=== PATIENT | male | born 1940 | race Caucasian/White ===

== ENCOUNTER 2020-07-15 13:21 | Emergency (ER) | payer OTHER ==
[2020-07-15 13:27] VITALS: BP 159/76; PULSE 79
== END 2020-07-15 16:21 | disposition home or self-care (01) ==
LOC: JER 13:21
DX: T81.31XA Disruption of external operation (surgical) wound, not elsewhere classified, initial encounter (principal)
CPT/HCPCS: 71045-TC-FY; 99283-25